=== PATIENT | male | born 1960 | race Caucasian/White ===

== ENCOUNTER 2020-12-14 10:57 | Emergency (ER) | payer OTHER ==
[~2020-12-14] VITALS: Ht 182.9 cm; Wt 110.5 kg
[2020-12-14 11:07] VITALS: BP 127/76
[2020-12-14] MEDS ORDERED: orphenadrine citrate 60mg/2ml inj. IM ONE (13:05)
[2020-12-14] MEDS ORDERED: ketorolac tromethamine 15mg/ml inj. IM ONE (13:05)
--- NOTE | 2020-12-14 13:33 | NUR ---
Per Robin VASQUEZ, Patient was unable to take medications due to home medications and would check with PCP regarding any further care.
== END 2020-12-14 13:34 | disposition home or self-care (01) ==
LOC: ER 10:57
DX: S20.212A Contusion of left front wall of thorax, initial encounter (principal); M25.512 Pain in left shoulder; Z88.2 Allergy status to sulfonamides; W14.XXXA Fall from tree, initial encounter; Y93.89 Activity, other specified; Y92.89 Other specified places as the place of occurrence of the external cause; Y99.8 Other external cause status
CPT/HCPCS: 71101; 99283